=== PATIENT | female | born 1980 ===

== ENCOUNTER 2018-12-16 09:32 | Emergency (ER) | payer OTHER ==
[2018-12-16 09:37] VITALS: BMI 24.6
[2018-12-16 09:39] VITALS: BP 111/75; PULSE 98; RESP 18; TEMP 99; O2SAT 98
--- NOTE | 2018-12-16 11:08 | C.PDOC ---
History Of Present Illness 38 year old female, whose past medical history includes hypertension, presents to the ED for evaluation of fever, chills, headache, generalized body aches, abdominal pain and nausea which began one day ago. Patient states she took DayQuil at around 0700 today with minimal relief. She denies vomiting, back pain, or urinary symptoms at this time. Time Seen by Provider: 12/16/18 09:46 Chief Complaint (Nursing): Flu-like Symptoms History Per: Patient History/Exam Limitations: no limitations Onset/Duration Of Symptoms: Hrs Current Symptoms Are (Timing): Still Present Location Of Pain: Diffuse Myalgias, Headache Associated Symptoms: Fever, Chills, Nausea. denies: Vomiting Additional History Per: Patient Past Medical History Reviewed: Historical Data, Nursing Documentation, Vital Signs Vital Signs: Last Vital Signs Temp 99.0 F 12/16/18 09:38 Pulse 98 H 12/16/18 09:38 Resp 18 12/16/18 09:38 BP 111/75 12/16/18 09:38 Pulse Ox 98 12/16/18 09:38 - Medical History PMH: HTN Surgical History: No Surg Hx Family History: States: Unknown Family Hx - Social History Hx Alcohol Use: No Hx Substance Use: No - Immunization History Hx Tetanus Toxoid Vaccination: No Hx Influenza Vaccination: No Hx Pneumococcal Vaccination: No Review Of Systems Constitutional: Positive for: Fever, Chills Gastrointestinal: Positive for: Nausea, Abdominal Pain. Negative for: Vomiting Genitourinary: Negative for: Dysuria, Frequency, Hematuria Musculoskeletal: Positive for: Other (generalized body aches ). Negative for: Back Pain Neurological: Positive for: Headache Physical Exam - Physical Exam Appears: Non-toxic, No Acute Distress, Other (appears ill and uncomfortable ) Skin: Normal Color, Warm, Dry Head: Atraumatic, Normacephalic Eye(s): bilateral: Other (watery eyes) Nose: Discharge Oral Mucosa: Moist Throat: Erythema (mild), No Exudate Neck: Supple Chest: Symmetrical, No Deformity, No Tenderness Cardiovascular: Rhythm Regular, No Murmur Respiratory: Normal Breath Sounds, No Rales, No Rhonchi, No Wheezing Gastrointestinal/Abdominal: Soft, No Tenderness, No Guarding, No Rebound Extremity: Normal ROM, Capillary Refill (less than 2 seconds ) Neurological/Psych: Normal Speech, Normal Cognition ED Course And Treatment O2 Sat by Pulse Oximetry: 98 (on RA) Pulse Ox Interpretation: Normal Medical Decision Making Medical Decision Making: Progress: Tylenol PO, Motrin PO and Tamiflu PO given. Plan is to hydrate the patient and re-evaluate. Disposition Counseled Patient/Family Regarding: Diagnosis, Need For Followup, Rx Given - Disposition Referrals: Kwaku Bacon MD [Staff Provider] - Disposition: HOME/ ROUTINE Disposition Time: 11:33 Condition: IMPROVED Prescriptions: Ibuprofen [Motrin] 600 mg PO TID #15 tab Oseltamivir Phosphate [Tamiflu] 75 mg PO DAILY #5 capsule Instructions: Flu, Adult (DC) Forms: Gen Discharge Inst [place], [email or web address] ([place]), Work Excuse - POA Present On Arrival: None - Clinical Impression Clinical Impression: Influenza - Scribe Statement The provider has reviewed the documentation as recorded by the Scribe (Dagmar Chen) Provider Attestation: All medical record entries made by the Scribe were at my direction and personally dictated by me. I have reviewed the chart and agree that the record accurately reflects my personal performance of the history, physical exam, medical decision making, and the department course for this patient. I have also personally directed, reviewed, and agree with the discharge instructions and disposition.
== END 2018-12-16 11:47 | disposition home or self-care (01) ==
LOC: C.ER 09:32
DX: J11.1 Influenza due to unidentified influenza virus with other respiratory manifestations (principal)